=== PATIENT | female | born 1960 | race Caucasian/White ===

== ENCOUNTER 2024-12-02 02:25 | Emergency (ER) | payer BC ==
[2024-12-02 02:36] VITALS: RESP 18
--- NOTE | 2024-12-02 02:41 | ED ---
Upper Extremity HPI <Mario Lozoya - Last Filed: 12/02/24 05:52> - General Source: patient, EMS, RN notes reviewed Mode of arrival: EMS Limitations: no limitations - History of Present Illness MD Complaint: Injury to:: right, shoulder Onset/Timin -: hour(s) Other Extremity Injury: Shoulder: Right Other Injuries: face Place: home Severity scale (1-10): 5 Improves With: immobilization Worsens With: movement of extremity Context: fall Associated Symptoms: denies other symptoms <Tyrell Carrillo - Last Filed: 12/02/24 16:14> - General Chief Complaint: Extremity Injury, Upper Stated Complaint: fall with injury Time Seen by Provider: 12/02/24 02:40 - History of Present Illness Initial Comments: This is a 63-year-old female presenting via EMS for fall occurring 1 hour prior to arrival. Patient states she tripped over her laundry basket, attempting to catch herself with her right arm and striking the ground with her nose, causing her nose to bleed following the fall that is since resolved. Denies loss consciousness, headache, neck pain, other significant injury. Patient states she is unable to move her right arm with right shoulder pain (5/10). Denies use of blood thinners. (Tyrell Carrillo) - Related Data Previous Rx's Medication Instructions Recorded HYDROcodone/APAP 5-325MG [[place] 1 tab PO Q4HR PRN 3 Days #18 tab 12/02/24 5-325] Ibuprofen [Motrin] 800 mg PO Q8H PRN #30 tab 12/02/24 Allergies Allergy/AdvReac Type Severity Reaction Status Date / Time No Known Allergies Allergy Verified 12/02/24 02:36 Review of Systems ROS Other: All systems not noted in ROS Statement are negative. <Mario Lozoya - Last Filed: 12/02/24 05:52> ROS Other: All systems not noted in ROS Statement are negative. <Tyrell Carrillo - Last Filed: 12/02/24 16:14> ROS Statement: Those systems with pertinent positive or pertinent negative responses have been documented in the HPI. Past Medical History Past Medical History: No Reported History Additional Past Surgical History / Comment(s): D&C Past Psychological History: No Psychological Hx Reported Smoking Status: Current every day smoker Past Alcohol Use History: Occasional Past Drug Use History: None Reported <Tyrell Carrillo Filed: 12/02/24 16:14> General Exam Limitations: no limitations General appearance: alert, in no apparent distress Head exam: Present: atraumatic, normocephalic, normal inspection Eye exam: Present: normal appearance, PERRL, EOMI. Absent: scleral icterus, conjunctival injection, periorbital swelling ENT exam: Present: normal oropharynx, mucous membranes moist, other (Dried blood noted in right nare without current bleeding. Small abrasion noted on bridge of nose without bleeding. Negative nasal deformity, ecchymosis, significant tenderness) Neck exam: Present: normal inspection. Absent: tenderness, meningismus, lymphadenopathy Respiratory exam: Present: normal lung sounds bilaterally. Absent: respiratory distress, wheezes, rales, rhonchi, stridor Cardiovascular Exam: Present: regular rate, normal rhythm, normal heart sounds. Absent: systolic murmur, diastolic murmur, rubs, gallop, clicks GI/Abdominal exam: Present: soft, normal bowel sounds. Absent: distended, tenderness, guarding, rebound, rigid Extremities exam: Present: full ROM, tenderness (Positive right proximal humerus tenderness without obvious open wound, ecchymosis. Positive crepitus, deformity), normal capillary refill, other (Distal RUE neurovascular and motor function intact. Patient unable to abduct arm. Capillary refill less than 2 seconds, radial pulse +2). Absent: pedal edema, joint swelling, calf tenderness Back exam: Present: normal inspection Neurological exam: Present: alert, oriented X3, CN II-XII intact Psychiatric exam: Present: normal affect, normal mood Skin exam: Present: warm, dry, intact, normal color. Absent: rash <Tyrell Carrillo Filed: 12/02/24 16:14> Course Vital Signs 12/02/24 12/02/24 02:26 06:36 Temperature 97.5 F L 97.7 F Pulse Rate 74 67 Respiratory 18 18 Rate Blood Pressure 172/93 148/73 O2 Sat by Pulse 98 96 Oximetry Procedures - Orthopedic Splinting/Casting Injury #1 Side: right Upper Extremity Injury Location: shoulder Upper Extremity Immobilizer: sling/shoulder immobilizer, sugar tong splint <Tyrell Carrillo Filed: 12/02/24 16:14> - Orthopedic Splinting/Casting Injury #1 Additional Comments: Post splint: Radial pulse +2, capillary refill less than 2 seconds. Patient able to move fingers (Tyrell Carrillo) Medical Decision Making <Tyrell Carrillo - Last Filed: 12/02/24 16:14> - Medical Decision Making Was pt. sent in by a medical professional or institution (, PA, NEWS VIDEOGRAPHER, urgent care, hospital, or [facility]...) When possible be specific @ -No Did you speak to anyone other than the patient for history (EMS, parent, family, police, friend...)? What history was obtained from this source @ -No Did you review nursing and triage notes (agree or disagree)? Why? @ -I reviewed and agree with nursing and triage notes Were old charts reviewed (outside hosp., previous admission, EMS record, old EKG, old radiological studies, urgent care reports/EKG's, [facility] records)? Report findings @ -No old charts were reviewed Differential Diagnosis (chest pain, altered mental status, abdominal pain women, abdominal pain men, vaginal bleeding, weakness, fever, dyspnea, syncope, headache, dizziness, GI bleed, back pain, seizure, CVA, palpatations, mental health, musculoskeletal)? @ -Differential Musculoskeletal Muscular strain, contusion, ligament sprain, fracture, arthritis, septic arthritis, bursitis, cellulitis, muscle spasm, nerve compression, DVT, arterial occlusion, herpes zoster, electrolyte abnormality, tumor.... This is not meant to be in all inclusive list EKG interpreted by me (3pts min.). @ -Not done X-rays interpreted by me (1pt min.). @ -Right shoulder x-ray shows displaced spiral fracture of the right proximal humerus diaphysis. Repeat right shoulder x-ray following splinting shows ongoing displaced spiral fracture. CT interpreted by me (1pt min.). @ -None done U/S interpreted by me (1pt. min.). @ -None done What testing was considered but not performed or refused? (CT, X-rays, U/S, labs)? Why? @ -None What meds were considered but not given or refused? Why? @ -Patient initially declined pain medication, stating pain was manageable with right arm immobilized. Did you discuss the management of the patient with other professionals (professionals i.e. , PA, NEWS VIDEOGRAPHER, lab, RT, psych nurse, social work msw, advertising specialist, teacher, global chief experience officer, case reviewer)? Give summary @ -No Was smoking cessation discussed for >3mins.? @ -No Was critical care preformed (if so, how long)? @ -No Were there social determinants of health that impacted care today? How? (Homelessness, low income, unemployed, alcoholism, drug addiction, transportation, low edu. Level, literacy, decrease access to med. care, penitentiary, rehab)? @ -No Was there de-escalation of care discussed even if they declined (Discuss DNR or withdrawal of care, Hospice)? DNR status @ -No What co-morbidities impacted this encounter? (DM, HTN, Smoking, COPD, CAD, Cancer, CVA, ARF, Chemo, Hep., AIDS, mental health diagnosis, sleep apnea, morbid obesity)? @ -None Was patient admitted / discharged? Hospital course, mention meds given and route, prescriptions, significant lab abnormalities, going to OR and other pertinent info. @ -Patient initially provided p.o. Tylenol for pain. Following application of sugar-tong splint, patient provided IV morphine and Toradol for pain and provided an arm sling and shoulder immobilizer. X-ray following splinting shows ongoing displaced proximal humerus fracture with distal neurovascular and motor function intact. Discharged with T3 starter pack and Elberta. Advise follow-up with orthopedics in the next 24-48 hours for further treatment. Discussed patient with Dr. Lozoya. Undiagnosed new problem with uncertain prognosis? @ -No Drug Therapy requiring intensive monitoring for toxicity (Heparin, Nitro, Insulin, Cardizem)? @ -No Were any procedures done? @ -Sugar-tong placed on right upper arm, followed by sling and shoulder immobilizer Diagnosis/symptom? @ -Displaced closed proximal humerus fracture Acute, or Chronic, or Acute on Chronic? @ -Acute Uncomplicated (without systemic symptoms) or Complicated (systemic symptoms)? @ -Uncomplicated Side effects of treatment? @ -No Exacerbation, Progression, or Severe Exacerbation? @ -No Poses a threat to life or bodily function? How? (Chest pain, [place], OR, pneumonia, PE, COPD, DKA, ARF, appy, cholecystitis, CVA, Diverticulitis, Homicidal, Suicidal, threat to staff... and all critical care pts) @ -No (Tyrell Carrillo) Disposition Is patient prescribed a controlled substance at d/c from ED?: Yes <Mario Lozoya - Last Filed: 12/02/24 05:52> Is patient prescribed a controlled substance at d/c from ED?: Yes Time of Disposition: 03:07 <Tyrell Carrillo - Last Filed: 12/02/24 16:14> Clinical Impression: Fracture of proximal humerus Disposition: HOME SELF-CARE Condition: Good Instructions (If sedation given, give patient instructions): Scapular Fracture (ED) Additional Instructions: Alternate Tylenol/Motrin every 4 hours for pain along with rest and ice. Follow-up with orthopedics on Wednesday for further evaluation and treatment. Prescriptions: Ibuprofen [Motrin] 800 mg PO Q8H PRN #30 tab PRN Reason: Pain HYDROcodone/APAP 5-325MG [[place] 5-325] 1 tab PO Q4HR PRN 3 Days #18 tab PRN Reason: Pain Referrals: None,Stated [Primary Care Provider] - 1-2 days [facility] [Provider Group] - 1-2 days [facility] [Provider Group] - 1-2 days
[2024-12-02] MEDS: ACETAMINOPHEN TAB 500 MG TAB PO STA (03:10)
--- NOTE | 2024-12-02 03:44 | XR ---
EXAM: XR Right Shoulder Complete, 2 or More Views CLINICAL HISTORY: ITS.REASON XR Reason: Fall, right shoulder pain TECHNIQUE: Two or more views of the right shoulder. COMPARISON: No relevant prior studies available. FINDINGS: Bones/joints: Displaced spiral fracture of the RIGHT humerus proximal diaphysis. No dislocation. Soft tissues: Unremarkable. IMPRESSION: Displaced spiral fracture of the RIGHT humerus proximal diaphysis.
[2024-12-02] MEDS: KETOROLAC 15 MG/ML 1 ML VIAL IVP STA (04:41)
[2024-12-02] MEDS: MORPHINE SULFATE 4 MG/ML SYRINGE IVP STA (04:44)
--- NOTE | 2024-12-02 05:01 | XR ---
EXAM: XR Right Shoulder Complete, 2 or More Views CLINICAL HISTORY: ITS.REASON XR Reason: Post splint TECHNIQUE: Two or more views of the right shoulder. COMPARISON: X-ray dated 12/02/2024. FINDINGS: Bones/joints: Obliquely oriented fracture is visualized within the proximal humeral diaphysis. Evaluation of her dislocation is limited. Degenerative changes seen at the clinic Soft tissues: Unremarkable. IMPRESSION: Proximal humeral fracture.
[2024-12-02] MEDS: ACET/COD 300 MG/30 MG STARTER PACK 6 TAB BTL PO STA (06:27)
[2024-12-02 06:38] VITALS: BP 148/73; PULSE 67; TEMP 97.7
== END 2024-12-02 06:36 | disposition home or self-care (01) ==
LOC: EC 02:25
DX: S42.341A Displaced spiral fracture of shaft of humerus, right arm, initial encounter for closed fracture (principal); F17.200 Nicotine dependence, unspecified, uncomplicated; W01.0XXA Fall on same level from slipping, tripping and stumbling without subsequent striking against object, initial encounter
CPT/HCPCS: 73020; 73030; 99284; 96374; 96375; 29105; L3670 ×2; J2270; J1885